=== PATIENT | male | born 1985 | race African-American/Black ===

== ENCOUNTER 2016-10-05 09:12 | Emergency (ER) | payer OTHER ==
[2016-10-05 09:15] VITALS: BP 160/92
--- NOTE | 2016-10-05 09:59 | ED Physician Documentation ---
PD HPI SKIN - Stated complaint Stated Complaint: MALE - Chief complaint Chief Complaint: General - History obtained from History obtained from: Patient - History of Present Illness Timing - onset: How many days ago (2-3) Timing - duration: Days Timing - details: Abrupt onset (he noted tenderness and now swelling rectal area. No prior similar problems.), Still present Location: Other (rectal) Similar symptoms before: Has not had sx before Recently seen: Not recently seen Review of Systems Constitutional: denies: Fever, Chills GI: reports: Diarrhea (last week for 2 days, then improved.). denies: Abdominal Pain, Nausea, Vomiting : denies: Dysuria, Frequency PD PAST MEDICAL HISTORY - Past Medical History Past Medical History: No - Past Surgical History Past Surgical History: No - Present Medications Home Medications: Ambulatory Orders Medication Instructions Recorded Confirmed Hydrocortisone Acetate [Anucort-Hc] 25 mg RC DAILY #5 supp.rect 10/05/16 - Allergies Allergies/Adverse Reactions: Allergies Allergy/AdvReac Type Severity Reaction Status Date / Time No Known Drug Allergies Allergy Verified 06/14/15 09:03 - Social History Does the pt smoke?: No Smoking Status: Never smoker Does the pt drink ETOH?: No Does the pt have substance abuse?: No - Immunizations Immunizations are current?: Yes PD ED PE NORMAL - Vitals Vital signs reviewed: Yes - General General: Alert and oriented X 3, No acute distress, Well developed/nourished - Rectal Rectal: Other (no perirectal fullness nor tenderness. There is 2 cm external hemorrhoid that is tender but soft/compressible. It is normal color (not purple) . No surrounding redness/ warmth, so does not appear infected. ) - Back Back: No CVA TTP - Derm Derm: Normal color, Warm and dry, No rash Results - Vitals Vitals: Vital Signs - 24 hr 10/05/16 09:13 Temperature 36.0 C L Heart Rate 72 Respiratory 18 Rate Blood Pressure 160/92 H O2 Saturation 98 Oxygen O2 Source Room air PD MEDICAL DECISION MAKING - ED course Complexity details: considered differential (external hemorrhoid without thrombosis, but is tender. ), d/w patient Departure - Departure Disposition: 01 Home, Self Care Clinical Impression: Hemorrhoid Qualifiers: Hemorrhoid type: unspecified Qualified Code(s): K64.9 - Unspecified hemorrhoids Condition: Stable Record reviewed to determine appropriate education?: Yes Instructions: ED Hemorrhoids Follow-Up: MARIA A Martinez [Provider Group] Prescriptions: Hydrocortisone Acetate [Anucort-Hc] 25 mg RC DAILY #5 supp.rect Comments: Hemorrhoid suppository daily for 5 days; can also use OTC hemorrhoid cream ( such as Preparation-H) to the lump area. Recheck if not improved over the next 2 -3 days. Recheck if worsening. It does not appear clotted/thrombosed at this time, so no benefit to lancing it/etc. Discharge Date/Time: 10/05/16 10:36
== END 2016-10-05 10:36 | disposition home or self-care (01) ==
LOC: ED 09:12
DX: K64.9 Unspecified hemorrhoids (principal)
CPT/HCPCS: 99283

== ENCOUNTER 2016-11-19 14:32 | Emergency (ER) | payer OTHER ==
[2016-11-19] MEDS ORDERED: SODIUM CHLORIDE 0.9% 1,000 ML IV ONE (16:02)
[2016-11-19 16:16] LABS: BASOPHILS # (AUTO) 0.1 10^3/uL (0.0-0.1); BASOPHILS % (AUTO) 0.9 %; EOSINOPHILS # (AUTO) 0.1 10^3/uL (0.0-0.7); HCT - HEMATOCRIT 41.9 % (42.0-52.0); HGB - HEMOGLOBIN 13.8 g/dL (14.0-18.0); LYMPHOCYTES # (AUTO) 1.2 10^3/uL (1.5-3.5); MEAN CORPUSCULAR HEMOGLOBIN 25.1 pg (27.0-31.0); MEAN CORPUSCULAR HGB CONC 32.9 g/dL (32.0-36.0); MEAN CORPUSCULAR VOLUME 76.4 fL (80.0-94.0); MEAN PLATELET VOLUME 8.4 fL (7.4-11.4); MONOCYTES # (AUTO) 0.4 10^3/uL (0.0-1.0); NEUTROPHILS # (AUTO) 5.7 10^3/uL (1.5-6.6); NEUTROPHILS % (AUTO) 77.1 %; RED BLOOD COUNT 5.48 10^6/uL (4.70-6.10); RED CELL DISTRIBUTION WIDTH 14.4 % (12.0-15.0); UNCORRECTED WHITE BLOOD COUNT 7.4 x10^3/uL; WHITE BLOOD COUNT 7.4 x10^3/uL (4.8-10.8)
[2016-11-19] MEDS ORDERED: PROCHLORPERAZINE 10 MG/2 ML VIAL IVP STA (16:19)
[2016-11-19] MEDS ORDERED: diphenhydrAMINE INJ 50 MG/ML VIAL IVP STA (16:19)
[2016-11-19 16:24] LABS: CALCIUM 9.1 mg/dL (8.5-10.3); CREATININE 1.1 mg/dL (0.6-1.2); POTASSIUM 3.6 mmol/L (3.5-5.0)
[2016-11-19] MEDS ORDERED: PROCHLORPERAZINE 10 MG/2 ML VIAL ONE (16:27)
[2016-11-19] MEDS ORDERED: diphenhydrAMINE INJ 50 MG/ML VIAL ONE (16:27)
[2016-11-19 18:20] VITALS: BP 156/84
--- NOTE | 2016-12-31 06:46 | ED Physician Documentation ---
History of Present Illness - Stated complaint Stated Complaint: HEADACHE, DIZZY, NAUSEA - Chief complaint Chief Complaint: Neuro - History obtained from History obtained from: Patient - History of Present Illness Timing: Prior to arrival Pain level max: 3 Pain level now: 2 Quality: throbbing Improved by: darkness and relaxation Worsened by: movement Associated symptoms: nausea - Treatment prior to arrival Treatment prior to arrival: none Review of Systems Constitutional: denies: Fever, Chills Eyes: reports: Photophobia. denies: Loss of vision Respiratory: denies: Dyspnea GI: reports: Nausea. denies: Abdominal Pain Musculoskeletal: denies: Neck pain, Extremity pain Endocrine: denies: Easy bruising / bleeding PD PAST MEDICAL HISTORY - Past Medical History Past Medical History: No - Past Surgical History Past Surgical History: No - Present Medications Home Medications: Ambulatory Orders Medication Instructions Recorded Confirmed No Known Home Medications [No 11/19/16 11/19/16 Known Home Medications] - Allergies Allergies/Adverse Reactions: Allergies Allergy/AdvReac Type Severity Reaction Status Date / Time No Known Drug Allergies Allergy Verified 11/19/16 14:44 - Social History Does the pt smoke?: No Smoking Status: Never smoker Does the pt drink ETOH?: No Does the pt have substance abuse?: No - Immunizations Immunizations are current?: Yes PD ED PE NORMAL - Vitals Vital signs reviewed: Yes - General General: Alert and oriented X 3, No acute distress, Well developed/nourished - HEENT HEENT: Atraumatic, PERRL, Pharynx benign - Neck Neck: Supple, no meningeal sign, No JVD, No bruit - Cardiac Cardiac: RRR, No murmur - Respiratory Respiratory: No respiratory distress - Abdomen Abdomen: Normal bowel sounds, Soft - Male Male : Deferred - Derm Derm: Normal color, Warm and dry - Extremities Extremities: No deformity, No tenderness to palpate - Neuro Neuro: Alert and oriented X 3, crm technical lead 2-12 intact, No motor deficit, No sensory deficit, Normal speech - Psych Psych: Normal mood, Normal affect Results - Vitals Vitals: Oxygen O2 Source Room air - Labs Labs: Laboratory Tests 11/19/16 11/19/16 14:10 14:10 WBC 7.4 RBC 5.48 Hgb 13.8 L Hct 41.9 L MCV 76.4 L MCH 25.1 L MCHC 32.9 RDW 14.4 Plt Count 216 MPV 8.4 Neut # 5.7 Lymph # 1.2 L [place] # 0.4 Eos # 0.1 Baso # 0.1 Absolute Nucleated RBC 0.00 Nucleated RBCs 0.0 Sodium 136 Potassium 3.6 Chloride 104 Carbon Dioxide 24 Anion Gap 8.0 BUN 11 Creatinine 1.1 Estimated GFR (MDRD) 96 Glucose 104 H Calcium 9.1 PD MEDICAL DECISION MAKING - ED course Complexity details: reviewed old records, reviewed results, re-evaluated patient , considered differential, d/w patient ED course: Weel appearing young male with vasoactive type headache inmproved with IVF's, compazine, and benadryl. Routine labs are all within normal limits. Onset duration, timing and improvements with treatment make SAH much less likely. Risk of of neuroimaging out weights benefit. Bp mildly elevated but doublt that is causal. I did recomend outpatient BP monitoring. Departure - Departure Disposition: 01 Home, Self Care Clinical Impression: Headache Qualifiers: Headache type: unspecified Headache chronicity pattern: acute headache Condition: Good Instructions: ED Cephalgia Unspecified Discharge Date/Time: 11/19/16 18:45
== END 2016-11-19 18:45 | disposition home or self-care (01) ==
LOC: ED 14:32
DX: R51 Headache (principal); R42 Dizziness and giddiness; R11.0 Nausea
CPT/HCPCS: 36415; 80048; 85025; 96361; 96374; 96375; 99283; 99284

== ENCOUNTER 2017-03-30 12:53 | Emergency (ER) | payer OTHER ==
[2017-03-30 13:18] VITALS: BP 156/107
--- NOTE | 2017-03-30 15:03 | ED Physician Documentation ---
History of Present Illness - Stated complaint Stated Complaint: MALE - Chief complaint Chief Complaint: General - History obtained from History obtained from: Patient - History of Present Illness Timing: Other (31-year-old gentleman, active duty in the [employer]. He has a history of exercise-induced rhabdomyolysis. But also twice over the last year he has had episodes where after ejaculation he had clots and blood in the urine which quickly resolved and had an episode like this last night with a short period of urinary retention due to the clot but today is peeing clearly. There is no testicular pain. No concern for STDs.) Review of Systems Constitutional: denies: Fever, Chills GI: denies: Abdominal Pain, Nausea : denies: Dysuria, Frequency, Hesitancy PD PAST MEDICAL HISTORY - Past Surgical History Past Surgical History: No - Present Medications Home Medications: Ambulatory Orders Medication Instructions Recorded Confirmed Ciprofloxacin HCl [Cipro] 500 mg PO BID #28 tablet 03/30/17 - Allergies Allergies/Adverse Reactions: Allergies Allergy/AdvReac Type Severity Reaction Status Date / Time No Known Drug Allergies Allergy Verified 03/30/17 13:19 - Social History Does the pt smoke?: No Smoking Status: Never smoker Does the pt drink ETOH?: No Does the pt have substance abuse?: No - Immunizations Immunizations are current?: Yes PD ED PE NORMAL - Vitals Vital signs reviewed: Yes - General General: Alert and oriented X 3, No acute distress - Abdomen Abdomen: Soft, Non tender - Male Male : Other (Normal male genitalia without testicular tenderness or mass.) - Back Back: No CVA TTP, No spinal TTP - Neuro Neuro: Alert and oriented X 3, Normal speech - Psych Psych: Normal mood, Normal affect Results - Vitals Vitals: Vital Signs - 24 hr 03/30/17 13:12 Temperature 36.5 C Heart Rate 79 Respiratory 18 Rate Blood Pressure 156/107 H O2 Saturation 96 Oxygen O2 Source Room air - Labs Labs: Laboratory Tests 03/30/17 13:20 Urine Color YELLOW Urine Clarity CLEAR Urine pH 6.5 Ur Specific [place] 1.015 Urine Protein NEGATIVE Urine Glucose (UA) NEGATIVE Urine Ketones NEGATIVE Urine Occult Blood NEGATIVE Urine Nitrite NEGATIVE Urine Bilirubin NEGATIVE Urine Urobilinogen 0.2 (NORMAL) Ur Leukocyte Esterase NEGATIVE Ur Microscopic Review NOT INDICATED Urine Culture Comments NOT INDICATED PD MEDICAL DECISION MAKING - ED course ED course: Given the history this is probably a prostatic tissue and he is given a course of antibiotics for potential prostatitis and urology follow-up was advised. There is no hematuria at this juncture. 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 Return if worse. Your blood pressure was elevated today on check into the emergency department. This does not mean that you have hypertension, it is a common phenomenon to come to the emergency department and have elevated blood pressure. I recommend that you see your primary care physician within the week to have it rechecked when you are feeling better.
[2017-03-30 15:06] LABS: BILIRUBIN,URINE NEGATIVE (NEGATIVE); GLUCOSE, URINE (UA) NEGATIVE (NEGATIVE); KETONES,URINE (UA) NEGATIVE (NEGATIVE); LEUKOCYTE ESTERASE, URINE NEGATIVE (NEGATIVE); NITRITE,URINE NEGATIVE (NEGATIVE); OCCULT BLOOD,URINE NEGATIVE (NEGATIVE); PH,URINE 6.5 PH (5.0-7.5); PROTEIN,URINE NEGATIVE (NEGATIVE); UROBILINOGEN,URINE 0.2 (NORMAL) E.U./dL (NORMAL)
[2017-03-30 15:07] LABS: CLARITY,URINE CLEAR (CLEAR)
== END 2017-03-30 15:25 | disposition home or self-care (01) ==
LOC: ED 12:53
DX: R31.0 Gross hematuria (principal); R03.0 Elevated blood-pressure reading, without diagnosis of hypertension
CPT/HCPCS: 81001; 81003; 87086; 99283

== ENCOUNTER 2017-11-02 06:25 | Emergency (ER) | payer OTHER ==
[2017-11-02 07:03] LABS: BASOPHILS % (AUTO) 0.6 %; EOSINOPHILS # (AUTO) 0.1 10^3/uL (0.0-0.7); EOSINOPHILS % (AUTO) 2.4 %; HGB - HEMOGLOBIN 14.1 g/dL (14.0-18.0); LYMPHOCYTES # (AUTO) 1.7 10^3/uL (1.5-3.5); MEAN CORPUSCULAR HEMOGLOBIN 25.7 pg (27.0-31.0); MEAN CORPUSCULAR HGB CONC 33.1 g/dL (32.0-36.0); MEAN CORPUSCULAR VOLUME 77.5 fL (80.0-94.0); MEAN PLATELET VOLUME 8.3 fL (7.4-11.4); MONOCYTES # (AUTO) 0.3 10^3/uL (0.0-1.0); MONOCYTES % (AUTO) 4.6 %; NEUTROPHILS # (AUTO) 3.4 10^3/uL (1.5-6.6); NEUTROPHILS % (AUTO) 61.4 %; PLT - PLATELET COUNT 227 10^3/uL (130-450); RED BLOOD COUNT 5.49 10^6/uL (4.70-6.10); RED CELL DISTRIBUTION WIDTH 14.7 % (12.0-15.0); WHITE BLOOD COUNT 5.6 x10^3/uL (4.8-10.8)
--- NOTE | 2017-11-02 07:05 | ED Physician Documentation ---
PD HPI NVD - Stated complaint Stated Complaint: N/V/D - Chief complaint Chief Complaint: Abd Pain - History obtained from History obtained from: Patient - History of Present Illness Timing - onset: Last night Timing - duration: Hours (6-8) Timing - details: Abrupt onset, Still present Associated symptoms: Abdominal pain (intermittent cramping upper abd), Loss of appetite. No: Fever, Near syncope / syncope Contributing factors: No: Sick contact, Bad food, Recent antibiotics Similar symptoms before: Has not had sx before Recently seen: Not recently seen Review of Systems Constitutional: denies: Fever, Chills, Myalgias Nose: denies: Rhinorrhea / runny nose, Congestion Throat: denies: Sore throat Respiratory: denies: Cough GI: reports: Nausea, Vomiting, Diarrhea : denies: Dysuria, Frequency Skin: denies: Rash, Lesions Neurologic: denies: Generalized weakness, Focal weakness, Numbness, Near syncope , Altered mental status, Headache PD PAST MEDICAL HISTORY - Past Medical History Cardiovascular: None Respiratory: None Neuro: None Endocrine/Autoimmune: None GI: None - Past Surgical History Past Surgical History: No - Present Medications Home Medications: Ambulatory Orders Medication Instructions Recorded Confirmed Ciprofloxacin HCl [Cipro] 500 mg PO BID #28 tablet 03/30/17 Diphenoxylate/Atropine [Lomotil] 1 each PO QID PRN #15 tablet 11/02/17 Ondansetron Odt [Zofran] 4 mg TL Q6H PRN #15 tablet 11/02/17 - Allergies Allergies/Adverse Reactions: Allergies Allergy/AdvReac Type Severity Reaction Status Date / Time No Known Drug Allergies Allergy Verified 11/02/17 06:32 - Social History Does the pt smoke?: No Smoking Status: Never smoker Does the pt drink ETOH?: No Does the pt have substance abuse?: No - Immunizations Immunizations are current?: Yes - POLST Patient has POLST: No PD ED PE NORMAL - Vitals Vital signs reviewed: Yes - General General: Alert and oriented X 3, No acute distress, Well developed/nourished - HEENT HEENT: PERRL (nonicteric), Pharynx benign - Neck Neck: Supple, no meningeal sign, No adenopathy - Cardiac Cardiac: RRR, No murmur - Respiratory Respiratory: Clear bilaterally - Abdomen Abdomen: Soft, Non tender, Non distended, No organomegaly. No: Normal bowel sounds (increased) - Derm Derm: Normal color, Warm and dry - Extremities Extremities: Normal ROM s pain, No edema - Neuro Neuro: Alert and oriented X 3, No motor deficit, Normal speech Results - Vitals Vitals: Vital Signs - 24 hr 11/02/17 11/02/17 06:32 08:41 Temperature 36.4 C L 36.3 C L Heart Rate 64 62 Respiratory 18 14 Rate Blood Pressure 160/84 H 158/80 H O2 Saturation 98 99 Oxygen O2 Source Room air - Labs Labs: Laboratory Tests 11/02/17 11/02/17 11/02/17 06:50 06:50 07:25 WBC 5.6 RBC 5.49 Hgb 14.1 Hct 42.5 MCV 77.5 L MCH 25.7 L MCHC 33.1 RDW 14.7 Plt Count 227 MPV 8.3 Neut # (Auto) 3.4 Lymph # (Auto) 1.7 [place] # (Auto) 0.3 Eos # (Auto) 0.1 Baso # (Auto) 0.0 Absolute Nucleated RBC 0.01 Nucleated RBC % 0.1 Sodium 139 Potassium 4.0 Chloride 104 Carbon Dioxide 26 Anion Gap 9.0 BUN 7 Creatinine 1.2 Estimated GFR (MDRD) 86 L Glucose 106 H Calcium 8.9 Total Bilirubin 0.9 AST 62 H ALT 62 H Alkaline Phosphatase 49 Total Protein 7.3 Albumin 4.2 Globulin 3.1 Albumin/Globulin Ratio 1.4 Lipase 28 Urine Color YELLOW Urine Clarity CLEAR Urine pH 8.0 H Ur Specific [place] 1.010 Urine Protein NEGATIVE Urine Glucose (UA) NEGATIVE Urine Ketones NEGATIVE Urine Occult Blood NEGATIVE Urine Nitrite NEGATIVE Urine Bilirubin NEGATIVE Urine Urobilinogen 0.2 (NORMAL) Ur Leukocyte Esterase NEGATIVE Ur Microscopic Review NOT INDICATED Urine Culture Comments NOT INDICATED PD MEDICAL DECISION MAKING - ED course Complexity details: reviewed results, considered differential (Seems likely to be a viral or food related illness given the vomiting and diarrhea without any abdominal tenderness. He is feeling better with IV fluids and medications.), d/ w patient - Sepsis Event Vital Signs: Vital Signs - 24 hr 11/02/17 11/02/17 06:32 08:41 Temperature 36.4 C L 36.3 C L Heart Rate 64 62 Respiratory 18 14 Rate Blood Pressure 160/84 H 158/80 H O2 Saturation 98 99 Oxygen O2 Source Room air Departure - Departure Disposition: Home, Self Care Clinical Impression: Nausea vomiting and diarrhea Condition: Stable Record reviewed to determine appropriate education?: Yes Instructions: ED Nausea Vomiting Follow-Up: MARIA A Martinez [Provider Group] Prescriptions: Diphenoxylate/Atropine [Lomotil] 1 each PO QID PRN #15 tablet PRN Reason: Diarrhea Ondansetron Odt [Zofran] 4 mg TL Q6H PRN #15 tablet PRN Reason: Nausea / Vomiting Comments: Rest at home today. Small frequent fluids and bland food. Ondansetron if needed for nausea. Lomotil if needed for diarrhea. Use Tylenol or ibuprofen for pains. This sounds likely to be a viral illness and typically these last 12 -24 hours. Recheck if not improved into tomorrow. Forms: Activity restrictions Discharge Date/Time: 11/02/17 08:45
[2017-11-02] MEDS ORDERED: KETOROLAC 60 MG/2 ML VIAL IVP STA (07:15)
[2017-11-02] MEDS ORDERED: DIPHENOX/ATROPINE 2.5/0.025 MG TABLET PO STA (07:15)
[2017-11-02] MEDS ORDERED: SODIUM CHLORIDE 0.9% 1,000 ML IV ONE ×2 (07:15→07:16)
[2017-11-02] MEDS ORDERED: ONDANSETRON 4 MG/2 ML VIAL IVP STA (07:15)
[2017-11-02 07:16] LABS: ALBUMIN 4.2 g/dL (3.2-5.5); ALBUMIN/GLOBULIN RATIO 1.4 (1.0-2.2); BILIRUBIN,TOTAL 0.9 mg/dL (0.2-1.0); CALCIUM 8.9 mg/dL (8.5-10.3); CREATININE 1.2 mg/dL (0.6-1.2); TOTAL PROTEIN 7.3 g/dL (6.7-8.2)
[2017-11-02 07:40] LABS: BILIRUBIN,URINE NEGATIVE (NEGATIVE); GLUCOSE, URINE (UA) NEGATIVE (NEGATIVE); KETONES,URINE (UA) NEGATIVE (NEGATIVE); LEUKOCYTE ESTERASE, URINE NEGATIVE (NEGATIVE); NITRITE,URINE NEGATIVE (NEGATIVE); OCCULT BLOOD,URINE NEGATIVE (NEGATIVE); PROTEIN,URINE NEGATIVE (NEGATIVE); UROBILINOGEN,URINE 0.2 (NORMAL) E.U./dL (NORMAL)
[2017-11-02 07:44] LABS: CLARITY,URINE CLEAR (CLEAR)
[2017-11-02 08:42] VITALS: BP 158/80
== END 2017-11-02 08:45 | disposition home or self-care (01) ==
LOC: ED 06:25
DX: R11.2 Nausea with vomiting, unspecified (principal); R19.7 Diarrhea, unspecified
CPT/HCPCS: 36415; 80053; 81003; 83690; 85025; 96374; 96375; 99283; A9270; 81001; 87086

== ENCOUNTER 2023-06-23 01:49 | Emergency (ER) | payer OTHER ==
--- NOTE | 2023-06-23 02:09 | ED Physician Documentation ---
History of Present Illness - Stated complaint Stated Complaint: - Chief complaint Chief Complaint: General - Additonal information Additional information: Patient 38-year-old male presenting to the emergency department with hematuria and difficulty with urination. Reports that approximately 1230 this morning, 1 and half hour prior to arrival he woke with sensation of needing to urinate and was unable to do so. Reports that he was able to pass a few blood clots as well as a scant amount of urine. Denies any abdominal pain, nausea, vomiting. Reports history of essential hypertension but reports noncompliance with his hypertensive medications. States has had similar episodes of gross hematuria in the past and has been followed by urology but that "no one has been able to tell me why this happens". States been several years since his last event. Chart review demonstrates 1 previous episode rhabdomyolysis as well as an episode of gross hematuria of uncertain etiology. Review of Systems Constitutional: denies: Fever Eyes: denies: Loss of vision Ears: denies: Loss of hearing Nose: denies: Rhinorrhea / runny nose Throat: denies: Dental pain / toothache Cardiac: denies: Chest pain / pressure Respiratory: denies: Dyspnea GI: denies: Abdominal Pain : reports: Hesitancy, Hematuria Skin: denies: Rash Musculoskeletal: denies: Neck pain Neurologic: denies: Generalized weakness Psychiatric: denies: Depressed PD PAST MEDICAL HISTORY - Past Medical History Past Medical History: Yes Cardiovascular: Hypertension Respiratory: None Neuro: None Endocrine/Autoimmune: None GI: None : Retention - Past Surgical History Past Surgical History: No - Present Medications Home Medications: Ambulatory Orders Medication Instructions Recorded Confirmed Ciprofloxacin HCl [Cipro] 500 mg PO BID #28 tablet 03/30/17 Diphenoxylate/Atropine [Lomotil] 1 each PO QID PRN #15 tablet 11/02/17 Ondansetron Odt [Zofran] 4 mg TL Q6H PRN #15 tablet 11/02/17 Losartan [Cozaar] 50 mg PO DAILY #30 tablet 06/23/23 cephALEXin [Keflex] 500 mg PO Q6H #20 cap 06/23/23 hydroCHLOROthiazide 50 mg PO DAILY #30 tablet 06/23/23 [Hydrochlorothiazide] - Allergies Allergies/Adverse Reactions: Allergies Allergy/AdvReac Type Severity Reaction Status Date / Time No Known Drug Allergies Allergy Verified 06/23/23 02:00 - Social History Does the pt smoke?: No Smoking Status: Never smoker Does the pt drink ETOH?: No Does the pt have substance abuse?: No - Immunizations Immunizations are current?: Yes - POLST Patient has POLST: No PD ED PE NORMAL - General General: Alert and oriented X 3, No acute distress, Well developed/nourished - HEENT HEENT: Atraumatic, PERRL, EOMI, Ears normal, Moist mucous membranes, Pharynx benign - Neck Neck: Supple, no meningeal sign, No bony TTP, No adenopathy, Thyroid normal, No JVD, No bruit, C-Spine cleared by NEXUS criteria - Cardiac Cardiac: RRR, No murmur, No gallop, No rub, Strong equal pulses - Respiratory Respiratory: No respiratory distress, Clear bilaterally - Abdomen Abdomen: Normal bowel sounds, Non tender - Derm Derm: Normal color - Extremities Extremities: No deformity - Neuro Neuro: Alert and oriented X 3, paper folder 2-12 intact, No motor deficit, Normal speech Results - Vitals Vitals: Vital Signs - 24 hr 06/23/23 06/23/23 06/23/23 01:57 02:01 04:00 Temperature 36.4 C L Heart Rate 98 92 84 Respiratory 18 18 16 Rate Blood Pressure 172/117 H 165/90 H O2 Saturation 99 98 99 Oxygen O2 Source Room air - Labs Labs: Laboratory Tests 06/23/23 06/23/23 06/23/23 02:16 02:23 02:23 WBC 7.7 RBC 5.66 Hgb 13.8 L Hct 44.6 MCV 78.8 L MCH 24.4 L MCHC 30.9 L RDW 14.7 Plt Count 241 MPV 10.6 Neut # (Auto) 5.1 Lymph # (Auto) 2.0 [place] # (Auto) 0.4 Eos # (Auto) 0.1 Baso # (Auto) 0.0 Absolute Nucleated RBC 0.00 Nucleated RBC % 0.0 PT 12.4 INR 1.1 Sodium Potassium Chloride Carbon Dioxide Anion Gap BUN Creatinine Estimated GFR (MDRD) Glucose Calcium Total Bilirubin AST ALT Alkaline Phosphatase Total Creatine Kinase Total Protein Albumin Globulin Albumin/Globulin Ratio Lipase Urine Color RED/BLOODY Urine Clarity CLOUDY Urine pH 7.0 Ur Specific [place] 1.015 Urine Protein >=300 H Urine Glucose (UA) 100 H Urine Ketones 15 H Urine Occult Blood LARGE H Urine Nitrite POSITIVE H Urine Bilirubin NEGATIVE Urine Urobilinogen 4 H Ur Leukocyte Esterase MODERATE H Urine RBC TNTC H Urine WBC 0-3 Ur Squamous Epith Cells NONE SEEN Urine Bacteria None Seen Ur Microscopic Review INDICATED Urine Culture Comments INDICATED 06/23/23 06/23/23 02:23 04:23 WBC RBC Hgb Hct MCV MCH MCHC RDW Plt Count MPV Neut # (Auto) Lymph # (Auto) [place] # (Auto) Eos # (Auto) Baso # (Auto) Absolute Nucleated RBC Nucleated RBC % PT INR Sodium 139 Potassium 3.1 L Chloride 103 Carbon Dioxide 27 Anion Gap 9.0 BUN 10 Creatinine 1.2 Estimated GFR (MDRD) 83 L Glucose 88 Calcium 9.6 Total Bilirubin 0.7 AST 52 H ALT 86 H Alkaline Phosphatase 59 Total Creatine Kinase 873 H 818 H Total Protein 7.1 Albumin 4.4 Globulin 2.7 Albumin/Globulin Ratio 1.6 Lipase 20 Urine Color Urine Clarity Urine pH Ur Specific [place] Urine Protein Urine Glucose (UA) Urine Ketones Urine Occult Blood Urine Nitrite Urine Bilirubin Urine Urobilinogen Ur Leukocyte Esterase Urine RBC Urine WBC Ur Squamous Epith Cells Urine Bacteria Ur Microscopic Review Urine Culture Comments PD Medical Decision Making - ED course Complexity details: reviewed old records, reviewed results, re-evaluated patient, considered differential, d/w patient ED course: Patient 38-year-old male presenting to the emergency department with Gross hematuria. He endorses for 2 previous events similar to this in the past. Chart review demonstrates 1 previous event of hematuria that was associated with rhabdomyolysis after a strenuous workout session. Additionally he reports 1 event in which she was followed with urology [id number], had workup including bladder MRI performed that was negative. Presents today with gross hematuria and inability to urinate x 2-3 hours. Amor catheter placed. Catheter flushed with significant passage of clots. No indications of catheter obstruction and no indications for total Bladder irrigation. Labs obtained, coagulation studies within normal limits, platelet counts within normal limits, renal function within normal limits. Patient had mild elevation in creatinine kinase, slightly below 850. Was given 2 L IV hydration with slight downtrend in this value. No reported extraneous physical activity that would account for an activity induced creatinine kinase and patient denied any illicit substance abuse, periods of immobility that would similarly account for this. He has a mild elevation in LFTs, likely secondary to hepatic steatosis and body habitus. He was mildly hypokalemic and was given potassium repletion. His repeat CK did downtrend slightly. He was offered catheter here in the emergency department which she declined reporting that he wished the catheter be removed. His urine analysis did have positive nitrates and leukocytes and he was given a gross gram Rocephin. Urine culture is pending. Will discharge on course of Keflex, refill his blood pressure medications and encourage him to follow-up with his primary care doctor soon as possible. Departure - Departure Disposition: Home, Self Care Clinical Impression: Elevated CK, Elevated blood pressure reading, Non compliance w medication regimen, Hypokalemia Hematuria Qualifiers: Hematuria type: gross Qualified Code(s): R31.0 - Gross hematuria Prescriptions: Losartan [Cozaar] 50 mg PO DAILY #30 tablet hydroCHLOROthiazide [Hydrochlorothiazide] 50 mg PO DAILY #30 tablet cephALEXin [Keflex] 500 mg PO Q6H #20 cap Comments: Thank you for allowing us to care for you today at [facility]. Today in the emergency room you were treated for gross hematuria. or blood in the urine. You are found to have an elevated Creatine kinase which can occur due to abnormal breakdown of muscle fibers. Your renal function was within a normal limit. You also had a mild elevation in your liver function tests. It is very important that you follow-up with your primary care doctor concerning these findings. You are offered Amor catheter here in the emergency department you have declined. It is important that if you begin to have difficulties with urination that you return to the emergency department for catheter placement. I have written prescriptions for course of oral antibiotic to treat for any possible concomitant urinary tract infection as well as refills of your hydrochlorothiazide and losartan. I have written prescriptions for lower doses of these medications then you may have been taking previously as I was unable to confirm your previous medication dosages. Please follow-up with your primary care doctor concerning these medications to determine whether or not they need dose adjustment. Again if it anytime you have new or worsening symptoms please not hesitate to return. Forms: PCP List
[2023-06-23 02:39] LABS: BASOPHILS % (AUTO) 0.4 %; EOSINOPHILS # (AUTO) 0.1 10^3/uL (0.0-0.7); EOSINOPHILS % (AUTO) 1.3 %; HCT - HEMATOCRIT 44.6 % (42.0-52.0); HGB - HEMOGLOBIN 13.8 g/dL (14.0-18.0); LYMPHOCYTES % (AUTO) 26.2 %; MEAN CORPUSCULAR HEMOGLOBIN 24.4 pg (27.0-31.0); MEAN CORPUSCULAR HGB CONC 30.9 g/dL (32.0-36.0); MEAN CORPUSCULAR VOLUME 78.8 fL (80.0-94.0); MEAN PLATELET VOLUME 10.6 fL (7.4-11.4); MONOCYTES # (AUTO) 0.4 10^3/uL (0.0-1.0); MONOCYTES % (AUTO) 5.4 %; NEUTROPHILS # (AUTO) 5.1 10^3/uL (1.5-6.6); NEUTROPHILS % (AUTO) 66.6 %; PLT - PLATELET COUNT 241 10^3/uL (130-450); RED BLOOD COUNT 5.66 10^6/uL (4.70-6.10); RED CELL DISTRIBUTION WIDTH 14.7 % (12.0-15.0); WHITE BLOOD COUNT 7.7 x10^3/uL (4.8-10.8)
[2023-06-23 02:41] LABS: BILIRUBIN,URINE NEGATIVE (NEGATIVE); GLUCOSE, URINE (UA) 100 mg/dL (NEGATIVE); KETONES,URINE (UA) 15 mg/dL (NEGATIVE); LEUKOCYTE ESTERASE, URINE MODERATE (NEGATIVE); NITRITE,URINE POSITIVE (NEGATIVE); OCCULT BLOOD,URINE LARGE (NEGATIVE); PROTEIN,URINE >=300 mg/dL (NEGATIVE); UROBILINOGEN,URINE 4 E.U./dL (NORMAL)
[2023-06-23 02:41] LABS: INR 1.1 (0.8-1.2); PT - PROTHROMBIN TIME 12.4 secs (9.9-12.6)
[2023-06-23 02:53] LABS: ALBUMIN 4.4 g/dL (3.2-5.5); ALBUMIN/GLOBULIN RATIO 1.6 (1.0-2.2); BILIRUBIN,TOTAL 0.7 mg/dL (0.2-1.0); CALCIUM 9.6 mg/dL (8.5-10.3); CREATININE 1.2 mg/dL (0.6-1.3); POTASSIUM 3.1 mmol/L (3.5-4.5); TOTAL PROTEIN 7.1 g/dL (6.4-8.9)
[2023-06-23 03:01] LABS: CLARITY,URINE CLOUDY (CLEAR); WBC,URINE 0-3 /HPF (0-3)
[2023-06-23 03:02] LABS: BACTERIA,URINE None Seen /HPF (None Seen); RBC,URINE TNTC /HPF (0-5); SQUAMOUS EPITHELIAL CELL,UR NONE SEEN (<= Few)
[2023-06-23] MEDS ORDERED: cefTRIAXone 1 GM VIAL ONE (03:19)
[2023-06-23] MEDS: cefTRIAXone 1 GM in SODIUM CHLORIDE 0.9% MINIBAG 100 ML IV STA (03:22)
[2023-06-23] MEDS: POTASSIUM CHLORIDE 20 MEQ/15 ML UDC PO STA (03:22)
[2023-06-23] MEDS: SODIUM CHLORIDE 0.9% 2,000 ML IV STA (03:23)
[2023-06-23] MEDS: hydroCHLOROthiazide 25 MG TABLET PO STA (03:23)
[2023-06-23 05:14] VITALS: BP 166/94; O2SAT 98
== END 2023-06-23 05:09 | disposition home or self-care (01) ==
LOC: ED 01:49
DX: R31.0 Gross hematuria (principal); E87.6 Hypokalemia; R74.8 Abnormal levels of other serum enzymes; I10 Essential (primary) hypertension; Z91.148 Patient's other noncompliance with medication regimen for other reason
CPT/HCPCS: 36415; 51702; 80053; 81001; 82550; 83690; 85025; 85610; 87086; 96365; 99284; A9270; 81003

== ENCOUNTER 2023-09-02 11:22 | Emergency (ER) | payer OTHER ==
[2023-09-02 11:41] VITALS: BP 152/110; O2SAT 100
== END 2023-09-02 14:17 | disposition left against medical advice (07) ==
LOC: ED 11:22
DX: Z53.21 Procedure and treatment not carried out due to patient leaving prior to being seen by health care provider (principal)

== ENCOUNTER 2023-09-22 15:28 | Emergency (ER) | payer OTHER ==
[2023-09-22 16:30] LABS: BASOPHILS % (AUTO) 0.4 %; EOSINOPHILS # (AUTO) 0.1 10^3/uL (0.0-0.7); EOSINOPHILS % (AUTO) 1.3 %; HCT - HEMATOCRIT 42.2 % (42.0-52.0); HGB - HEMOGLOBIN 13.3 g/dL (14.0-18.0); LYMPHOCYTES # (AUTO) 2.1 10^3/uL (1.5-3.5); MEAN CORPUSCULAR HEMOGLOBIN 24.7 pg (27.0-31.0); MEAN CORPUSCULAR HGB CONC 31.5 g/dL (32.0-36.0); MEAN CORPUSCULAR VOLUME 78.4 fL (80.0-94.0); MEAN PLATELET VOLUME 10.3 fL (7.4-11.4); MONOCYTES # (AUTO) 0.4 10^3/uL (0.0-1.0); MONOCYTES % (AUTO) 4.9 %; NEUTROPHILS # (AUTO) 5.1 10^3/uL (1.5-6.6); NEUTROPHILS % (AUTO) 66.1 %; PLT - PLATELET COUNT 254 10^3/uL (130-450); RED BLOOD COUNT 5.38 10^6/uL (4.70-6.10); RED CELL DISTRIBUTION WIDTH 14.8 % (12.0-15.0); WHITE BLOOD COUNT 7.7 x10^3/uL (4.8-10.8)
[2023-09-22 16:43] LABS: CALCIUM 9.8 mg/dL (8.5-10.3); CREATININE 1.3 mg/dL (0.6-1.3)
--- NOTE | 2023-09-22 17:40 | ED Physician Documentation ---
History of Present Illness - Stated complaint Stated Complaint: HIGH BP - Chief complaint Chief Complaint: Cardiac - History obtained from History obtained from: Patient - History of Present Illness Timing: Today Pain level max: 0 Pain level now: 0 - Additonal information Additional information: 38-year-old male states that he went to the [email or web address] today to get his high blood pressure medications refilled. He states that there they said his blood pressure was high. He also has a history of elevated CK enzymes in the past. No chest pain. No shortness of breath. He does workout frequently and lifts weights frequently. He was occasionally have muscle soreness from this. He states he did a heavy workout recently. His CK was found to be elevated at the [email or web address]. They sent him here for evaluation. He has no symptoms. No focal neurological deficits. No muscle pain or weakness. Review of Systems Constitutional: denies: Fever, Chills Respiratory: denies: Cough GI: denies: Vomiting, Diarrhea PD PAST MEDICAL HISTORY - Past Medical History Cardiovascular: Hypertension Respiratory: None Neuro: None Endocrine/Autoimmune: None GI: None : Retention, Other Musculoskeletal: None - Past Surgical History Past Surgical History: No - Present Medications Home Medications: Ambulatory Orders Medication Instructions Recorded Confirmed Losartan [Cozaar] 50 mg PO DAILY #30 tablet 06/23/23 09/02/23 hydroCHLOROthiazide 50 mg PO DAILY #30 tablet 06/23/23 09/02/23 [Hydrochlorothiazide] - Allergies Allergies/Adverse Reactions: Allergies Allergy/AdvReac Type Severity Reaction Status Date / Time No Known Drug Allergies Allergy Verified 09/22/23 15:51 - Social History Does the pt smoke?: No Smoking Status: Never smoker Does the pt drink ETOH?: No Does the pt have substance abuse?: No - Immunizations Immunizations are current?: Yes - POLST Patient has POLST: No PD ED PE NORMAL - Vitals Vital signs reviewed: Yes - General General: Alert and oriented X 3, No acute distress - HEENT HEENT: Moist mucous membranes - Neck Neck: Supple, no meningeal sign - Cardiac Cardiac: RRR, Strong equal pulses - Respiratory Respiratory: No respiratory distress, Clear bilaterally - Abdomen Abdomen: Soft, Non tender, Non distended - Derm Derm: Warm and dry - Extremities Extremities: No edema, No calf tenderness / cord - Neuro Neuro: Alert and oriented X 3 - Psych Psych: Normal mood, Normal affect Results - Vitals Vitals: Vital Signs - 24 hr 09/22/23 09/22/23 15:49 18:02 Temperature 36.7 C 36.5 C Heart Rate 84 80 Respiratory 16 16 Rate Blood Pressure 150/100 H 148/97 H O2 Saturation 100 98 Oxygen O2 Source Room air - EKG (time done) 1555 EKG releavant findings:: EKG personally interpreted by author of this note. Relevant findings are: Rate: Rate (enter#) (91) Rhythm: NSR [place]: Normal Intervals: Normal PA QRS: LVH Ischemia: Normal ST segments - Labs Labs: Laboratory Tests 09/22/23 09/22/23 16:25 16:25 WBC 7.7 RBC 5.38 Hgb 13.3 L Hct 42.2 MCV 78.4 L MCH 24.7 L MCHC 31.5 L RDW 14.8 Plt Count 254 MPV 10.3 Neut # (Auto) 5.1 Lymph # (Auto) 2.1 Alfalfa # (Auto) 0.4 Eos # (Auto) 0.1 Baso # (Auto) 0.0 Absolute Nucleated RBC 0.00 Nucleated RBC % 0.0 Sodium 140 Potassium 3.0 L Chloride 103 Carbon Dioxide 31 Anion Gap 6.0 BUN 11 Creatinine 1.3 Estimated GFR (MDRD) 76 L Glucose 87 Calcium 9.8 Total Creatine Kinase 977 H PD Medical Decision Making - ED course Complexity details: reviewed results, re-evaluated patient, considered differential, d/w patient ED course: 38-year-old male with asymptomatic hypertension. Recommend he restart his medication that he picked up today. Patient also has a mild chronic elevation of his CK. Normal kidney function. No indication for further testing at this time. This can be rechecked with his doctor. Encourage p.o. hydration. Especially water. No evidence of kidney issues. Patient counseled regarding signs and symptoms for which I believe and urgent re-evaluation would be necessary. Patient with good understanding of and agreement to plan and is comfortable going home at this time This document was made in part using voice recognition software. While efforts are made to proofread this document, sound alike and grammatical errors may occur. Departure - Departure Disposition: 01 Home, Self Care Clinical Impression: Elevated CK Hypertension Qualifiers: Hypertension type: unspecified Qualified Code(s): I10 - Essential (primary) hypertension Condition: Good Instructions: ED HTN Established Follow-Up: Srikanth Kelley MD [Provider Admit Priv/Credential] - [facility] [Provider Group] Comments: Please make sure you are drinking plenty of fluids at home. Please return if you worsen. As we discussed your mild elevation of your creatinine kinase level is not dangerous. Make sure you are drinking plenty of water. Your CK can elevate for many reasons including strenuous workouts and heavy weightlifting. The remainder of your laboratory testing is normal. Please resume your normal blood pressure medications. I have also included the name of a local urologist that the [facility] can refer you to for your hematuria. Forms: PCP List Discharge Date/Time: 09/22/23 18:02
[2023-09-22 18:12] VITALS: BP 148/97; O2SAT 98
== END 2023-09-22 18:02 | disposition home or self-care (01) ==
LOC: ED 15:28
DX: I10 Essential (primary) hypertension (principal); Z76.0 Encounter for issue of repeat prescription; R94.4 Abnormal results of kidney function studies
CPT/HCPCS: 36415; 80048; 82550; 85025; 99283; 99284